=== PATIENT | female | born 1965 | race Caucasian/White ===

== ENCOUNTER 2023-09-03 15:29 | Outpatient (OUT) | payer OTHER, SELFPAY ==
--- NOTE | 2023-09-03 | XR_ITS ---
[facility] [id number] Patient Name: MAIKEL CAMPOS MRN: [id number] date: 1965 Sex: F Assigned Patient Location: Current Patient Location: Accession/Order Number: [id number] Exam Date: 09/03/2023 15:30 Report Date: 09/03/2023 16:00 At the request of: FLORENCIO SANTACRUZ Procedure: XR ankle JASON min 3V EXAMINATION: XR foot JASON min 3V, XR ankle JASON min 3V HISTORY: BI LATERAL FOOT PAIN , bilateral ankle pain COMPARISON: No relevant comparison available. FINDINGS: RIGHT FINDINGS: BONES: Normal. No significant arthropathy or acute abnormality. SOFT TISSUES: Negative. No visible soft tissue swelling. OTHER: Negative. LEFT FINDINGS: BONES: Normal. No significant arthropathy or acute abnormality. SOFT TISSUES: Negative. No visible soft tissue swelling. OTHER: Negative. XR/XR ankle JASON min 3V IMPRESSION: RIGHT CONCLUSION: No acute abnormality LEFT CONCLUSION: No acute abnormality Electronically authenticated by: JO ANN WELSH Date: 09/03/2023 16:00
--- NOTE | 2023-09-03 | XR_ITS ---
[facility] [id number] Patient Name: MAIKEL CAMPOS MRN: [id number] date: 1965 Sex: F Assigned Patient Location: Current Patient Location: Accession/Order Number: [id number] Exam Date: 09/03/2023 15:30 Report Date: 09/03/2023 16:00 At the request of: FLORENCIO SANTACRUZ Procedure: XR foot JASON min 3V EXAMINATION: XR foot JASON min 3V, XR ankle JASON min 3V HISTORY: BI LATERAL FOOT PAIN , bilateral ankle pain COMPARISON: No relevant comparison available. FINDINGS: RIGHT FINDINGS: BONES: Normal. No significant arthropathy or acute abnormality. SOFT TISSUES: Negative. No visible soft tissue swelling. OTHER: Negative. LEFT FINDINGS: BONES: Normal. No significant arthropathy or acute abnormality. SOFT TISSUES: Negative. No visible soft tissue swelling. OTHER: Negative. XR/XR foot JASON min 3V IMPRESSION: RIGHT CONCLUSION: No acute abnormality LEFT CONCLUSION: No acute abnormality Electronically authenticated by: JO ANN WELSH Date: 09/03/2023 16:00
== END 2023-09-03 15:30 | disposition home or self-care (01) ==
LOC: EC 15:29
PROVIDERS: Visit Provider Podiatrist Foot & Ankle Surgery
DX: M79.671 Pain in right foot (principal); M79.672 Pain in left foot; M25.571 Pain in right ankle and joints of right foot; M25.572 Pain in left ankle and joints of left foot
CPT/HCPCS: 73610; 73630